=== PATIENT | male | born 1945 | race Caucasian/White ===

== ENCOUNTER 2016-11-14 09:09 | Emergency (ER) | payer MEDICARE ==
[~2016-11-14] VITALS: Ht 188 cm; Wt 101.4 kg
[~2016-11-14 09:09] MED LIST: AMLO5TAB2 PO; CHOL3000 PO; CLON-275 PO; CLON0.1T PO; FLEC50TA25 PO; HYDR12.58 PO; PRAS25TA PO; THYR25PO PO; UBID100C19 PO
[2016-11-14] MEDS ORDERED: SODIUM CHLORIDE FLUSH 10ML SYR IVF ONE (10:00)
[2016-11-14] MEDS ORDERED: RIVA20TA PO (10:15)
[2016-11-14 10:19] LABS: BLOOD UREA NITROGEN 18 mg/dL (7-18)
[2016-11-14 10:31] LABS: IS PT STATUS REG ER OR PRE ER? YES
[2016-11-14 10:59] VITALS: BP 90/62
[2016-11-14] MEDS ORDERED: PROPOFOL 10 MG/ML, 20ML ONE (11:05)
[2016-11-14] MEDS ORDERED: PROPOFOL 10 MG/ML, 20ML IVPush ONE (11:30)
== END 2016-11-14 13:18 | disposition home or self-care (01) ==
LOC: ED 10:32
DX: I48.0 Paroxysmal atrial fibrillation (principal); I48.92 Unspecified atrial flutter; I10 Essential (primary) hypertension; I48.91 Unspecified atrial fibrillation
CPT/HCPCS: 36415; 71010; 80048; 82040; 83735; 84436; 84443; 84484; 85025; 92960; 93005; 96374; 99285; J2704

== ENCOUNTER → 2016-12-23 | Outpatient (CLI) | payer MEDICARE ==
[~2016-12-23] MED LIST changes: +RIVA20TA PO
== END | disposition home or self-care (01) ==
LOC: CFH 12:47
PROVIDERS: ATTEND Internal Medicine Cardiovascular Disease
DX: I08.3 Combined rheumatic disorders of mitral, aortic and tricuspid valves (principal); I11.9 Hypertensive heart disease without heart failure; I37.1 Nonrheumatic pulmonary valve insufficiency; I10 Essential (primary) hypertension
CPT/HCPCS: 93306

== ENCOUNTER 2017-12-02 12:30 | Day surgery (SDC) | payer MEDICARE ==
[~2017-12-02] VITALS: Ht 188 cm; Wt 98.0 kg
[2017-12-02] MEDS ORDERED: MIDAZOLAM 1 MG/ML, 2ML ONE ×2 (13:47→14:55)
[2017-12-02] MEDS ORDERED: UBID10CA5 PO (13:59)
[2017-12-02] MEDS ORDERED: AMLO5TAB2 PO (13:59)
[2017-12-02] MEDS ORDERED: LIDOCAINE 2%, 2ML ONE (14:16)
[2017-12-02] MEDS ORDERED: VERAPAMIL 2.5 MG/ML, 2ML ONE (14:16)
[2017-12-02] MEDS ORDERED: HEPARIN 1,000 UNITS/ML, 10ML ONE (14:22)
[2017-12-02] MEDS ORDERED: FENTANYL PF 100 MCG/2ML ONE (14:22)
[2017-12-02] MEDS ORDERED: OXYcodone 5 MG/5 ML ORAL.SOL UDC PO PRN (15:00)
[2017-12-02] MEDS ORDERED: DIAZEPAM 5 MG/ML, 2ML IVPush PRN (15:00)
[2017-12-02] MEDS ORDERED: MORPHINE SULFATE 4 MG/ML, 1ML IVPush PRN (15:00)
[2017-12-02] MEDS ORDERED: DIAZEPAM 5 MG TABLET PO ONE (15:00)
[2017-12-02] MEDS ORDERED: ONDANSETRON ODT 8 MG PO PRN (15:00)
[2017-12-02] MEDS ORDERED: MIDAZOLAM 1 MG/ML, 2ML IV PRN (15:00)
[2017-12-02] MEDS ORDERED: FENTANYL PF 100 MCG/2ML IV PRN (15:00)
[2017-12-02] MEDS ORDERED: LORazepam 2 MG/ML, 1ML IVPush PRN (15:00)
[2017-12-02] MEDS ORDERED: DEXAMETHASONE 4 MG/ML, 1ML ONE (16:13)
[2017-12-02] MEDS ORDERED: PROPOFOL 10 MG/ML, 20ML ONE (16:13)
[2017-12-02] MEDS ORDERED: PROPOFOL 10 MG/ML, 50ML ONE (16:13)
== END 2017-12-02 17:30 ==
LOC: CACL 12:30
PROVIDERS: ATTEND Internal Medicine Cardiovascular Disease
DX: I25.10 Atherosclerotic heart disease of native coronary artery without angina pectoris (principal)
CPT/HCPCS: 93458; C1769; C1894; J1100; J1644; J2250; J2704; J3010; J3490; Q9967

== ENCOUNTER 2019-06-26 18:02 | Emergency (ER) | payer MEDICARE ==
[~2019-06-26] VITALS: Ht 188 cm; Wt 100.8 kg
[~2019-06-26 18:02] MED LIST changes: +AMLO-150 PO; -AMLO5TAB2 PO; -CLON0.1T PO; +CLON0.1T22 PO; -HYDR12.58 PO; +HYDROCHLOROTH12.5 MG PO; +UBID100C10 PO; -UBID100C19 PO; +UBID10CA5 PO
[2019-06-26 18:03] VITALS: BP 107/80
--- NOTE | 2019-06-26 18:08 | NUR ---
74 Y/O MALE PRESENTS TO ED WITH C/O PALPATATIONS. PT IS HERE WITH DR. RYDER. PT STATES HE HAS BEEN CARDIOVERTED 4 TIMES BEFORE."
[2019-06-26] MEDS ORDERED: PROPOFOL 10 MG/ML, 20ML ONE (18:21)
[2019-06-26] MEDS ORDERED: PROPOFOL 10 MG/ML, 20ML IVPush ONE (18:30)
--- NOTE | 2019-06-26 18:30 | NUR ---
PIV ESTABLISHED. PT TOLERATED WITH NO COMPLICATIONS.
--- NOTE | 2019-06-26 18:54 | NUR ---
PERFORMED CARDIOVERSION WITH DR. RYDER AND DR. MICHELE. SEE NOTES ATTACHED TO CHART.
--- NOTE | 2019-06-26 18:56 | NUR ---
PT DENIES CHEST PAIN AT THIS TIME. PT [id number]. BEDSIDE.
--- NOTE | 2019-06-26 19:00 | NUR ---
BEDSIDE REPORT TO STEPHANIE RICHARDS.
--- NOTE | 2019-06-26 19:24 | NUR ---
pt tolerated procedure well. PT DC HOME WITH AND WILL FOLLOW UP WITH PCP IN AM.
== END 2019-06-26 19:28 | disposition home or self-care (01) ==
LOC: ED 19:26
DX: I48.92 Unspecified atrial flutter (principal); I10 Essential (primary) hypertension; I48.91 Unspecified atrial fibrillation; Z72.89 Other problems related to lifestyle; Z87.891 Personal history of nicotine dependence
CPT/HCPCS: 92960; 93005; 99285; J2704

== ENCOUNTER → 2019-07-21 | Outpatient (CLI) | payer MEDICARE | END | disposition home or self-care (01) | LOC: CVU 15:05 | PROVIDERS: ATTEND Internal Medicine Cardiovascular Disease | DX: I08.3 Combined rheumatic disorders of mitral, aortic and tricuspid valves (principal); I48.0 Paroxysmal atrial fibrillation; I10 Essential (primary) hypertension; Z87.891 Personal history of nicotine dependence | CPT/HCPCS: 93306 ==

== ENCOUNTER → 2021-01-30 | Outpatient (CLI) | payer MEDICARE | END | disposition home or self-care (01) | LOC: CFH 13:31 | PROVIDERS: ATTEND Internal Medicine Cardiovascular Disease | DX: I35.1 Nonrheumatic aortic (valve) insufficiency (principal); I48.0 Paroxysmal atrial fibrillation; I11.0 Hypertensive heart disease with heart failure; Z87.891 Personal history of nicotine dependence; Z79.01 Long term (current) use of anticoagulants | CPT/HCPCS: 93306 ==

== ENCOUNTER 2021-03-26 10:41 | Outpatient (CLI) | payer MEDICARE ==
[2021-03-26] MEDS ORDERED: OMNIPAQUE 350 MG/ML, 150 ML BOTTLE ONE (11:21)
[2021-03-28] MEDS ORDERED: Testosterone SC (15:06)
[2021-03-28] MEDS ORDERED: Hydro Eye PO (15:06)
[2021-03-28] MEDS ORDERED: Melatonin PO (15:06)
[2021-03-28] MEDS ORDERED: CLON0.1T22 PO (15:06)
[2021-03-28] MEDS ORDERED: Magnesium PO (15:06)
[2021-03-28] MEDS ORDERED: [UNRECOGNIZED DRUG - OTHER] PO (15:06)
[2021-03-28] MEDS ORDERED: [UNRECOGNIZED DRUG - OTHER] PO (15:09)
[2021-03-28] MEDS ORDERED: Folate PO (15:09)
[2021-03-28] MEDS ORDERED: Natural Thyroid PO (15:09)
[2021-03-28] MEDS ORDERED: VITA1TAB19 PO (15:10)
[2021-03-28] MEDS ORDERED: CYAN-27 PO (15:10)
[2021-03-28] MEDS ORDERED: ALIR75PE5 SQ (15:11)
[2021-03-28] MEDS ORDERED: TADA5TAB2 PO (15:12)
[2021-03-28] MEDS ORDERED: NEO PO (15:14)
[2021-03-29] MEDS ORDERED: COLC0.6C3 PO (12:00)
[2021-03-29] MEDS ORDERED: ACET325T26 PO (12:00)
== END 2021-03-26 23:59 | disposition home or self-care (01) ==
LOC: CFH 10:41 → RAD 23:59
PROVIDERS: ATTEND Internal Medicine Cardiovascular Disease
DX: Z01.818 Encounter for other preprocedural examination (principal); Z20.822 Contact with and (suspected) exposure to COVID-19; I48.91 Unspecified atrial fibrillation
CPT/HCPCS: 71046; 75572; Q9967; U0003; U0005

== ENCOUNTER 2021-03-28 10:28 | Observation (INO) | payer MEDICARE ==
[~2021-03-28] VITALS: Ht 188 cm; Wt 97.5 kg
[2021-03-29 12:59] VITALS: BP 120/69
== END 2021-03-29 15:11 | disposition home or self-care (01) ==
LOC: CACL 10:28 → 5SO 23:52 → INTOOBSV 23:52
PROVIDERS: ADMIT Internal Medicine Cardiovascular Disease; ATTEND Internal Medicine Cardiovascular Disease
DX: I48.0 Paroxysmal atrial fibrillation (principal); I10 Essential (primary) hypertension; I77.810 Thoracic aortic ectasia; R41.82 Altered mental status, unspecified; Z79.899 Other long term (current) drug therapy